=== PATIENT | male | born 2000 | race Caucasian/White ===

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

== ENCOUNTER 2019-07-18 22:57 | Emergency (ER) | payer SELFPAY ==
[~2019-07-18] VITALS: Ht 188 cm; Wt 86.2 kg
[2019-07-19 00:32] VITALS: BP 122/70
== END 2019-07-19 00:47 | disposition home or self-care (01) ==
LOC: ER 22:58
DX: S93.401A Sprain of unspecified ligament of right ankle, initial encounter (principal); X58.XXXA Exposure to other specified factors, initial encounter; Y93.89 Activity, other specified; Y92.89 Other specified places as the place of occurrence of the external cause; Y99.8 Other external cause status
CPT/HCPCS: 73600

== ENCOUNTER 2021-03-26 17:58 | Emergency (ER) | payer MEDICAID, OTHER ==
[~2021-03-26] VITALS: Ht 188 cm; Wt 72.6 kg
[2021-03-26 18:01] VITALS: BP 131/80
== END 2021-03-26 21:20 | disposition left against medical advice (07) ==
LOC: ER 18:03
DX: K92.1 Melena (principal)

== ENCOUNTER → 2022-03-07 | Outpatient (CLI) | payer BC ==
[2022-03-07 11:36] LABS: Basophils # (auto) 0.1 10 ^3/uL (0-0.2); Basophils % (auto) 1.3 % (0.0-2.0); Eosinophils # (auto) 0.1 10 ^3/uL (0-0.8); Eosinophils % (auto) 1.1 % (0.0-7.0); Hematocrit 45.6 % (41.0-53.0); Lymphocytes # (auto) 1.3 10 ^3/uL (0.4-5.4); Lymphocytes % (auto) 26.4 % (10.0-50.0); Mean Corpuscular Hemoglobin 27.9 pg (28.0-32.0); Mean Corpuscular Volume 84.5 fL (80.0-100.0); Monocytes # (auto) 0.3 10 ^3/uL (0-1.3); Monocytes % (auto) 6.8 % (0.0-12.0); Neutrophils # (auto) 3.2 10 ^3/uL (1.6-8.6); Neutrophils % (auto) 64.4 % (37.0-80.0); Red Blood Cells 5.39 10^6/uL (4.5-5.90); Red Cell Distribution Width 13.5 % (11.8-14.3)
[2022-03-07 11:54] LABS: Urine Bacteria NONE SEEN /hpf (None Seen); Urine Blood Negative /uL (Negative); Urine Specific Gravity 1.016 (1.001-1.035); Urine WBC <1 /hpf (0 - 3)
[2022-03-07 12:28] LABS: Albumin 4.2 g/dL (3.4-5.0); Calcium 9.1 mg/dL (8.5-10.1); Potassium 4.3 mmol/L (3.5-5.1)
[2022-03-07 12:34] LABS: BUN/Creatinine Ratio 17.9; Bilirubin, Total 0.9 mg/dL (0.2-1.0); Total Protein 7.4 g/dL (6.4-8.2)
== END | disposition home or self-care (01) ==
LOC: LAB 11:19
PROVIDERS: ATTEND Nurse Practitioner
DX: I10 Essential (primary) hypertension (principal); E78.5 Hyperlipidemia, unspecified
CPT/HCPCS: 36415; 80053; 80061; 81001; 84443; 85025; 87493

== ENCOUNTER → 2022-07-29 | Day surgery (SDC) | payer BC ==
[2022-07-24 15:07] LABS: Basophils # (auto) 0.1 10 ^3/uL (0-0.2); Basophils % (auto) 1.4 % (0.0-2.0); Eosinophils # (auto) 0.2 10 ^3/uL (0-0.8); Eosinophils % (auto) 3.5 % (0.0-7.0); Hemoglobin 14.6 g/dL (13.5-17.5); Lymphocytes # (auto) 1.8 10 ^3/uL (0.4-5.4); Lymphocytes % (auto) 29.6 % (10.0-50.0); Mean Corpuscular Hemoglobin 28.1 pg (28.0-32.0); Mean Corpuscular Hgb Conc. 33.3 g/dL (32.0-36.0); Mean Corpuscular Volume 84.6 fL (80.0-100.0); Monocytes # (auto) 0.4 10 ^3/uL (0-1.3); Monocytes % (auto) 7.2 % (0.0-12.0); Neutrophils # (auto) 3.4 10 ^3/uL (1.6-8.6); Neutrophils % (auto) 58.3 % (37.0-80.0); Nucleated Red Blood Cells % 0.1 %; Red Cell Distribution Width 13.3 % (11.8-14.3); White Blood Cell 5.9 10^3/uL (4.4-10.8)
[2022-07-24 15:21] LABS: INR 1.03 (0.9-1.15); Partial Thromboplastin Time 26.6 sec (24.6-33.4)
[2022-07-24 15:34] LABS: Urine Amorphous Crystal FEW /hpf (None Seen); Urine Bacteria NONE SEEN /hpf (None Seen); Urine Blood Negative /uL (Negative); Urine Budding Yeast MANY /hpf (None Seen); Urine Specific Gravity 1.027 (1.001-1.035); Urine Sperm PRESENT /hpf (None Seen); Urine WBC 1 /hpf (0 - 3); Urine WBC Clumps PRESENT /hpf (None Seen)
[2022-07-24 16:25] LABS: Potassium 3.7 mmol/L (3.5-5.1)
[2022-07-24 16:33] LABS: BUN/Creatinine Ratio 13.6 (10.0-20.0); Bilirubin, Total 1.5 mg/dL (0.2-1.0); Calcium 8.4 mg/dL (8.5-10.1); Total Protein 7.1 g/dL (6.4-8.2)
[~2022-07-29] VITALS: Ht 188 cm; Wt 93.0 kg
[~2022-07-29] MED LIST: ALBUAER3 IN; GLYCOPYRROLATE 0.2 MG/ML 1ML VIAL ONE; HYDROcodone-ACET 10/325MG TAB PO ONE; KETOROLAC TROMETH 30 MG/ML 1ML VIAL IV ONE; LIDOCAINE 2% (LOCAL ANESTH.) PF 5ml SDV ONE; MIDAZOLAM HCL 2MG/2ML 2ml VIAL (1mg/ml) ONE; NEOSTIGMINE 1 MG/ML INJ (10mg/10ML VIAL) ONE; ONDANSETRON HCL 4 MG/2 ML VIAL IV PRN; ONDANSETRON HCL 4 MG/2 ML VIAL ONE; PROPOFOL 10 MG/ML 20 ML IV ONE; ceFAZolin 1GM/50ML 100 ML IV ONE; fentaNYL CITRATE 5 ML ONE; traMADol HCL 50 MG TAB PO ONE
[2022-07-29 13:30] VITALS: BP 128/67
== END | disposition home or self-care (01) ==
LOC: SUR 08:52
PROVIDERS: ATTEND Orthopaedic Surgery Sports Medicine
DX: M67.51 Plica syndrome, right knee (principal); J45.909 Unspecified asthma, uncomplicated; Z88.5 Allergy status to narcotic agent; Z79.51 Long term (current) use of inhaled steroids; Z80.8 Family history of malignant neoplasm of other organs or systems; Z85.9 Personal history of malignant neoplasm, unspecified; Z84.89 Family history of other specified conditions; Z98.890 Other specified postprocedural states
CPT/HCPCS: 29875; 36415; 80053; 81001; 85025; 85610; 85730; J0690; J2001; J2250; J2405; J2704; J3010

== ENCOUNTER 2023-01-14 19:11 | Emergency (ER) | payer BC ==
[~2023-01-14] VITALS: Ht 188 cm; Wt 102.7 kg
[~2023-01-14 19:11] MED LIST changes: -GLYCOPYRROLATE 0.2 MG/ML 1ML VIAL ONE; -HYDROcodone-ACET 10/325MG TAB PO ONE; -KETOROLAC TROMETH 30 MG/ML 1ML VIAL IV ONE; -LIDOCAINE 2% (LOCAL ANESTH.) PF 5ml SDV ONE; -MIDAZOLAM HCL 2MG/2ML 2ml VIAL (1mg/ml) ONE; -NEOSTIGMINE 1 MG/ML INJ (10mg/10ML VIAL) ONE; -ONDANSETRON HCL 4 MG/2 ML VIAL IV PRN; -ONDANSETRON HCL 4 MG/2 ML VIAL ONE; -PROPOFOL 10 MG/ML 20 ML IV ONE; -ceFAZolin 1GM/50ML 100 ML IV ONE; -fentaNYL CITRATE 5 ML ONE; -traMADol HCL 50 MG TAB PO ONE
[2023-01-14 19:38] VITALS: BP 142/94; PULSE 86; RESP 17; TEMP 98.4; O2SAT 96
[2023-01-14] MEDS ORDERED: IBUP1TAB5 PO (21:58)
== END 2023-01-14 22:22 ==
LOC: ER 19:16
DX: M79.605 Pain in left leg (principal); Z88.5 Allergy status to narcotic agent
CPT/HCPCS: 73590; 93971

== ENCOUNTER → 2023-09-09 | Outpatient (CLI) | payer BC ==
[~2023-09-09] MED LIST changes: +IBUP1TAB5 PO
== END | disposition home or self-care (01) ==
LOC: LAB 14:31
DX: J30.89 Other allergic rhinitis (principal)
CPT/HCPCS: 82785; 86003